=== PATIENT | male | born 2000 | race Caucasian/White ===

== ENCOUNTER 2021-07-14 08:53 | Emergency (ER) | payer OTHER ==
[~2021-07-14] VITALS: Ht 167.6 cm; Wt 70.3 kg
--- NOTE | 2021-07-14 09:09 | EKG ---
[place] [address] ELECTROCARDIOGRAM REPORT Name: WILFRED LORENZ Room: [facility]#: [id number] Admission: Attend Phys: Discharge: Date of : [birth year] Date of Service: 07/14/21857 Report #: [id number] THIS REPORT FOR: //name// [facility] ED Test Date: 2021-07-14 Test Time: 08:58:54 Pat Name: WILFRED LORENZ Department: Room: Gender: Platform Supervisor: : 2000 Requested By: Tee Goldstein Order Number: [id number] MD: Mario Palomino Measurements Intervals [place] Rate: 92 P: 34 CA: 158 QRS: 46 QRSD: 107 T: 24 QT: 356 QTc: 441 Interpretive Statements Sinus rhythm ST elev, probable normal early repol pattern No previous ECG available for comparison Electronically Signed On 07-14-2021 9:08:47 CDT by Mario Palomino [email or web address] <ELECTRONICALLY SIGNED> By: Mario Palomino MD, [facility] 07/14/21907 7 7 Mario Palomino MD, FAC /EPI
[2021-07-14 09:13] LABS: ABSOLUTE EOSINOPHILS 0.5 thou/uL (0.0-0.7); ABSOLUTE MONOCYTES 0.8 thou/uL (0.0-1.2); ABSOLUTE NEUTROPHILS 5.4 thou/uL (1.6-8.1); BASOPHILS 0.4 %; EOSINOPHILS 5.4 %; HEMATOCRIT 39.3 % (42.0-52.0); HEMOGLOBIN 13.4 gm/dL (14.0-18.0); LYMPHOCYTES 23.2 %; MCHC 34.1 g/dL (28.0-37.0); MCV 85.1 fL (80.0-100.0); MONOCYTES 9.1 %; MPV 7.1 fl. (7.2-11.1); NUCLEATED RBCS 0 /100WBC; PLATELET COUNT* 273 thou/uL (150-400); POLYS 61.9 %; RBC 4.62 mil/uL (4.50-6.00); RDW-CV 13.1 % (10.5-14.5); WBC 8.8 thou/uL (4.0-11.0)
[2021-07-14 09:26] LABS: POTASSIUM 3.9 mmol/L (3.5-5.1)
[2021-07-14 09:30] LABS: ALBUMIN 4.4 g/dL (3.4-5.0); TOTAL BILIRUBIN 0.4 mg/dL (<0.1-1.0); TOTAL PROTEIN 8.1 g/dL (6.4-8.2)
[2021-07-14] MEDS ORDERED: IBUPROFEN 800800 MG PO (12:52)
[2021-07-14 13:03] VITALS: BP 127/74
--- NOTE | 2021-07-14 14:40 | 2DMMODE ---
[place] [address] 2 D/M-MODE ECHOCARDIOGRAM Name: WILFRED LORENZ Room: [facility]#: [id number] Admission: 07/14/21 Attend Phys: Discharge: 07/14/21 Date of : [birth year] Date of Service: 07/14/21 1439 Report #: [id number] THIS REPORT FOR: cc: Physician not on staff Physician not on staff Mario Palomino MD [facility] ~ APPROVED REPORT Study performed: 07/14/2021 10:31:04 EXAM: Comprehensive 2D, Doppler, and color-flow Echocardiogram Patient Location: In-Patient Room #: er Status: routine BSA: 0.31 HR: 70 bpm BP: 158/78 mmHg Rhythm: NSR Other Information Study Quality: Good Indications Chest Pain 2D Dimensions IVSd: 9.52 (7-11mm) LVOT Diam: 21.02 (18-24mm) LVDd: 51.48 mm PWd: 9.62 (7-11mm) Ascending Ao: 25.40 (22-36mm) LVDs: 32.66 (25-40mm) Aortic Root: 28.51 mm Volumes Left Atrial Volume (Systole) LA ESV Index: 27.50 mL/m2 Aortic Valve AoV Peak Gilson.: 1.18 m/s AO Peak Gr.: 5.56 mmHg LVOT Max P.60 mmHg AO Mean Gr.: 2.95 mmHg LVOT Mean P.01 mmHg LVOT Max V: 1.07 m/s AO V2 VTI: 22.02 cm LVOT Mean V: 0.64 m/s EDI (VTI): 3.15 cm2 LVOT V1 VTI: 20.03 [place] [address] 2 D/M-MODE ECHOCARDIOGRAM Name: WILFRED [facility]ORENZ [id number] Admission: 07/14/21 Attend Phys: Discharge: 07/14/21 Date of : [birth year] Date of Service: 07/14/21 1439 Report #: [id number] Mitral Valve E/A Ratio: 1.95 MV Decel. Time: 200.98 ms MV E Max Gilson.: 0.79 m/s MV PHT: 58.28 ms MVA (PHT): 3.77 cm2 TDI E/Lateral E': 3.59 E/Medial E': 6.58 Medial E' Gilson.: 0.12 m/s Lateral E' Gilson.: 0.22 m/s Pulmonary Valve PV Peak Gilson.: 1.10 m/s PV Peak Gr.: 4.81 mmHg Tricuspid Valve RAP Estimate: 5.00 mmHg TR Peak Gr.: 19.65 mmHg RVSP: 24.00 mmHg PA Pressure: 24.00 mmHg Left Ventricle The left ventricle is normal size. There is normal LV segmental wall motion. There is normal left ventricular wall thickness. Left ventricular systolic function is normal. LVEF is 55-60%. The left ventricular diastolic function is normal. Right Ventricle Right ventricle is dilated. The right ventricular systolic function is normal. Atria The left atrium size is normal. Right atrium is dilated. Aortic Valve The aortic valve is normal in structure. No aortic regurgitation is present. There is no aortic valvular stenosis. Mitral Valve The mitral valve is normal in structure. Trace mitral regurgitation. No evidence of mitral valve stenosis. Tricuspid Valve The tricuspid valve is normal in structure. Mild tricuspid regurgitation. No pulmonary hypertension[place] [address] 2 D/M-MODE ECHOCARDIOGRAM Name: WILFRED LORENZ Room: [facility]#: [id number] Admission: 07/14/21 Attend Phys: Discharge: 07/14/21 Date of : [birth year] Date of Service: 07/14/21 1439 Report #: [id number] The pulmonary valve is normal in structure. There is no pulmonic valvular regurgitation. Great Vessels The aortic root is normal in size. IVC is normal in size and collapses >50% with inspiration. Pericardium There is no pericardial effusion. <Conclusion> The left ventricle is normal size. There is normal left ventricular wall thickness. Left ventricular systolic function is normal. LVEF is 55-60%. The left ventricular diastolic function is normal. There is normal LV segmental wall motion. Trace mitral regurgitation. Mild tricuspid regurgitation. No pulmonary hypertension. IVC is normal in size and collapses >50% with inspiration. <ELECTRONICALLY SIGNED> By: Mario Palomino MD, FACC 07/14/21 1439 1439 1439 Mario Palomino MD, FACC /INF
== END 2021-07-14 13:03 | disposition home or self-care (01) ==
LOC: M.ERS 08:53
PROVIDERS: Family Medicine
DX: R07.89 Other chest pain (principal); R06.89 Other abnormalities of breathing